=== PATIENT | female | born 1955 | race Caucasian/White ===

== ENCOUNTER 2016-10-08 12:42 | Emergency (ER) | payer OTHER ==
[2016-10-08 13:06] VITALS: BP 113/73
--- NOTE | 2016-10-08 13:32 | UC ---
Skin Complaint HPI - HPI Summary HPI Summary: Itching, burning skin on back of head, down both arms, on the back starting a few days ago. Fears it is shingles again. Skin very prickly and itchy all over. Many recent life stressors, including of MELVINA 3 months ago, moving in with her MIL, and being diagnosed with UC. Has started new medication for UC. Hx of anxiety and depression. Pt admits she has picked at her skin in the past during stressful times. - History of Current Complaint Chief Complaint: UCSkin Time Seen by Provider: 10/08/16 13:14 Stated Complaint: RASH Hx Obtained From: Patient ?: No Onset/Duration: Gradual Onset, Lasting Days Timing: Constant Onset Severity: Moderate Current Severity: Moderate Location: Diffuse Character: Pruritus Alleviating: Nothing Associated Signs & Symptoms: Positive: Rash - Allergy/Home Medications Allergies/Adverse Reactions: Allergies Allergy/AdvReac Type Severity Reaction Status Date / Time Penicillins Allergy Rash And Verified 09/13/16 11:59 Itching Review of Systems Constitutional: Negative Skin: Rash Eyes: Negative ENT: Negative Respiratory: Negative Cardiovascular: Negative Gastrointestinal: Negative Genitourinary: Negative Motor: Negative Neurovascular: Negative Musculoskeletal: Negative Neurological: Negative Psychological: Negative All Other Systems Reviewed And Are Negative: Yes PMH/Surg Hx/FS Hx/Imm Hx Endocrine History Of: Denies: Diabetes, Thyroid Disease Cardiovascular History Of: Denies: Cardiac Disorders, Hypertension, Pacemaker/ICD Respiratory History Of: Denies: COPD, Asthma GI/ History Of: Denies: Ulcer, Renal Disease Psychological History Of: Reports: Anxiety, Depression - Surgical History Surgical History: Yes Surgery Procedure, Year, and Place: Lt KNEE. Jun 2014 Herniated disc repair - Family History Known Family History: Positive: None - Social History Lives: With Family Alcohol Use: None Substance Use Type: None Smoking Status (MU): Former Smoker Have You Smoked in the Last Year: No When Did the Patient Quit Smoking/Using Tobacco: 2011 - Immunization History Most Recent Influenza Vaccination: Jun 2014 Most Recent Tetanus Shot: unk Physical Exam Triage Information Reviewed: Yes Appearance: Well-Appearing, No Pain Distress, Thin Vital Signs: Initial Vital Signs Temp 98.2 F 10/08/16 12:54 Pulse 88 10/08/16 12:54 Resp 16 10/08/16 12:54 BP 113/73 10/08/16 12:54 Pulse Ox 98 10/08/16 12:54 Vital Signs Reviewed: Yes Eye Exam: Normal Eyes: Positive: Conjunctiva Clear ENT Exam: Normal ENT: Positive: Normal ENT inspection, Hearing grossly normal, Pharynx normal, TMs normal Dental Exam: Normal Neck exam: Normal Neck: Positive: Supple, Nontender, No Lymphadenopathy Respiratory Exam: Normal Respiratory: Positive: Chest non-tender, Lungs clear, Normal breath sounds, No respiratory distress, No accessory muscle use Cardiovascular Exam: Normal Cardiovascular: Positive: RRR, No Murmur Musculoskeletal Exam: Normal Neurological Exam: Normal Psychological Exam: Normal Skin Exam: Other - open excoriations on back, R arm. R arm excoriation near elbow surrounded by bruising, no raised lesions, no rash noted. Multiple small round pale scars all over arms, face, and upper back. Course/Dx - Diagnoses Provider Diagnoses: anxiety. skin-picking. pruritis Discharge - Discharge Plan Condition: Stable Disposition: HOME Prescriptions: hydrOXYzine HCL TAB* [Atarax TAB*] 50 mg PO QID PRN #20 tab PRN Reason: Itching Patient Education Materials: Anxiety (ED), Itchy Skin (ED) Referrals: Michael Cook MD [Primary Care Provider] - Additional Instructions: The cetirizine (zyrtec) that you take at bedtime is in the same drug class as the prescription you have received today. It is safe to take the hydroxyzine during the say and the cetirizine at night, or you can stop the cetirizine altogether. If you need a nighttime dose, take only one or the other. Please discuss your recent stress with Dr. Cook, and try to allow your skin to heal. You may need to revisit your treatment of anxiety and depression.
== END 2016-10-08 13:33 | disposition home or self-care (01) ==
LOC: UCEAST 12:42
DX: F41.9 Anxiety disorder, unspecified (principal); F42.4 Excoriation (skin-picking) disorder; L29.9 Pruritus, unspecified; Z88.0 Allergy status to penicillin; Z87.891 Personal history of nicotine dependence
CPT/HCPCS: 99212; G0463

== ENCOUNTER 2017-05-20 18:25 | Emergency (ER) | payer OTHER ==
[2017-05-20 18:35] VITALS: BP 123/63
--- NOTE | 2017-05-20 19:00 | UC ---
Lower Extremity/Ankle HPI - HPI Summary HPI Summary: L ankle pain since tripping on the stairs 3 days ago. Ankle still painful and swelling. - History of Current Complaint Chief Complaint: UCLowerExtremity Stated Complaint: ANKLE AND FOOT INJURY Time Seen by Provider: 05/20/17 18:50 Hx Obtained From: Patient ?: No Onset/Duration: Sudden Onset, Lasting Days Severity Initially: Moderate Severity Currently: Mild Aggravating Factor(s): Standing, Ambulation Alleviating Factor(s): Rest Able to Bear Weight: Yes - Allergies/Home Medications Allergies/Adverse Reactions: Allergies Allergy/AdvReac Type Severity Reaction Status Date / Time Cetirizine Allergy Hives Verified 05/20/17 18:38 Penicillins Allergy Rash And Verified 09/13/16 11:59 Itching Home Medications: Home Medications Clonazepam [Klonopin] 1 mg PO 05/20/17 [History] PMH/Surg Hx/FS Hx/Imm Hx Previously Healthy: Yes - Surgical History Surgical History: Yes Surgery Procedure, Year, and Place: Lt KNEE. Jun 2014 Herniated disc repair - Family History Known Family History: Positive: None - Social History Alcohol Use: None Substance Use Type: None Smoking Status (MU): Former Smoker Have You Smoked in the Last Year: No When Did the Patient Quit Smoking/Using Tobacco: 2011 - Immunization History Most Recent Influenza Vaccination: Jun 2014 Most Recent Tetanus Shot: unk Review of Systems Constitutional: Negative Skin: Negative Eyes: Negative ENT: Negative Respiratory: Negative Cardiovascular: Negative Gastrointestinal: Negative Genitourinary: Negative Motor: Negative Neurovascular: Negative Musculoskeletal: Arthralgia - L ankle Neurological: Negative Psychological: Negative All Other Systems Reviewed And Are Negative: Yes Physical Exam Triage Information Reviewed: Yes Appearance: Well-Appearing, No Pain Distress, Well-Nourished Vital Signs: Initial Vital Signs Temp 98.1 F 05/20/17 18:31 Pulse 86 05/20/17 18:31 Resp 20 05/20/17 18:31 BP 123/63 05/20/17 18:31 Pulse Ox 100 05/20/17 18:31 Vital Signs Reviewed: Yes Eye Exam: Normal, Other - PERRL Eyes: Positive: Conjunctiva Clear ENT Exam: Normal ENT: Positive: Normal ENT inspection, Hearing grossly normal, Pharynx normal, TMs normal Dental Exam: Normal Neck exam: Normal Neck: Positive: Supple, Nontender, No Lymphadenopathy Respiratory Exam: Normal Respiratory: Positive: Chest non-tender, Lungs clear, Normal breath sounds, No respiratory distress, No accessory muscle use Cardiovascular Exam: Normal Cardiovascular: Positive: RRR, No Murmur Musculoskeletal Exam: Other - mild tenderness diffuse over L lateral ankle/ foot. No bony tenderness Musculoskeletal: Positive: Strength Intact, ROM Intact Neurological Exam: Normal Neurological: Positive: Alert Psychological Exam: Normal Skin Exam: Normal Lower Extremity Course/Dx - Differential Dx/Diagnosis Provider Diagnoses: L ankle sprain Discharge - Discharge Plan Condition: Stable Disposition: HOME Patient Education Materials: Ankle Sprain (ED) Referrals: Michael Cook MD [Primary Care Provider] - Additional Instructions: I expect your pain to gradually improve over 1-2 weeks. If you are not back to normal activities in that timeframe, please see your primary care provider for a recheck. Use ibuprofen, elevation, and immobilization for pain.
--- NOTE | 2017-05-20 19:11 | RAD ---
HISTORY: Left lower extremity injury, subacute trauma COMPARISONS: None VIEWS: 6, Frontal, lateral, and oblique views of the left ankle and of the left foot FINDINGS: BONE DENSITY: Normal. BONES: There is no displaced fracture. JOINTS: There is mild osteoarthritis of the first MTP joint ALIGNMENT: There is no dislocation. SOFT TISSUES: Unremarkable. OTHER FINDINGS: None. IMPRESSION: NO ACUTE OSSEOUS INJURY TO THE LEFT ANKLE OR TO THE LEFT FOOT. IF SYMPTOMS PERSIST, RECOMMEND REPEAT IMAGING.
== END 2017-05-20 19:30 | disposition home or self-care (01) ==
LOC: UCEAST 18:25
DX: S93.402A Sprain of unspecified ligament of left ankle, initial encounter (principal); W10.2XXA Fall (on)(from) incline, initial encounter; Y93.9 Activity, unspecified; Y92.9 Unspecified place or not applicable; Z88.1 Allergy status to other antibiotic agents; Z88.0 Allergy status to penicillin; Z87.891 Personal history of nicotine dependence
CPT/HCPCS: 99213; G0463

== ENCOUNTER 2017-06-23 15:32 | Emergency (ER) | payer OTHER ==
[2017-06-23 17:36] VITALS: BP 135/71
--- NOTE | 2017-06-23 17:54 | RAD ---
INDICATION: Left foot pain. Injury 1 month ago. COMPARISON: None TECHNIQUE: AP, lateral, and oblique views were obtained. FINDINGS: There are no acute bony findings. There is minor first MTP joint osteoarthritis with minor hallux valgus deformity. The joint spaces are maintained. The soft tissues are normal.. IMPRESSION: NO ACUTE BONY FINDINGS.
--- NOTE | 2017-06-23 17:55 | UC ---
Lower Extremity/Ankle HPI - HPI Summary HPI Summary: Patient presents to the with CC of right foot pain x 4 weeks without improvement. She was seen here 1 month ago and xrays were taken. Showed no acute findings. She was given an que wrap and a follow up to ortho but states she cannot go because she is too busy. She states she is not leaving without medication and a boot d/t the amount of pain. Her pain was originally located in the right ankle with the deltoid ligmanet involvement. After using the que wrap for a short amount of time, she currently is now using no support. She states the pain has moved to the anterior and posterior foot with worsening pain in the plantar surface. She notes previous injuries of the ankle and a bunion. Pain is 8/10, constant and aching. - History of Current Complaint Chief Complaint: UCLowerExtremity Stated Complaint: L SPRAINED ANKLE Time Seen by Provider: 06/23/17 17:05 Hx Obtained From: Patient ?: No Onset/Duration: Sudden Onset Severity Initially: Moderate Severity Currently: Moderate Pain Intensity: 8 Pain Scale Used: 0-10 Numeric Aggravating Factor(s): Standing, Ambulation Alleviating Factor(s): Rest Able to Bear Weight: No - Allergies/Home Medications Allergies/Adverse Reactions: Allergies Allergy/AdvReac Type Severity Reaction Status Date / Time Cetirizine Allergy Hives Verified 06/23/17 16:15 Penicillins Allergy Rash And Verified 06/23/17 16:15 Itching Home Medications: Home Medications Fexofenadine (NF) [Irina 180 (NF)] 1 tab PO DAILY 06/23/17 [History Confirmed 06/23/17] PMH/Surg Hx/FS Hx/Imm Hx Previously Healthy: Yes - Surgical History Surgical History: Yes Surgery Procedure, Year, and Place: Lt KNEE. Jun 2014 Herniated disc repair - Family History Known Family History: Positive: None - Social History Occupation: Unemployed Lives: With Family Alcohol Use: None Substance Use Type: None Smoking Status (MU): Former Smoker Have You Smoked in the Last Year: No When Did the Patient Quit Smoking/Using Tobacco: 2011 - Immunization History Most Recent Influenza Vaccination: Jun 2014 Most Recent Tetanus Shot: unk Review of Systems Constitutional: Negative ENT: Negative Respiratory: Negative Genitourinary: Negative Motor: Negative Neurovascular: Negative Musculoskeletal: Arthralgia Neurological: Negative Psychological: Negative Is Patient Immunocompromised?: No All Other Systems Reviewed And Are Negative: Yes Physical Exam Triage Information Reviewed: Yes Appearance: Well-Appearing, Well-Nourished Vital Signs: Initial Vital Signs Temp 98.5 F 06/23/17 16:11 Pulse 88 06/23/17 16:11 Resp 18 06/23/17 16:11 BP 113/72 06/23/17 16:11 Pulse Ox 100 06/23/17 16:11 Vital Signs Reviewed: Yes Eye Exam: Normal Eyes: Positive: Conjunctiva Clear Neck exam: Normal Neck: Positive: Supple, No Lymphadenopathy Cardiovascular Exam: Normal Cardiovascular: Positive: RRR Musculoskeletal: Positive: Strength Intact, ROM Intact - ROM in tact - but with pain Neurological Exam: Normal Neurological: Positive: Alert Psychological: Positive: Normal Response To Family Skin Exam: Normal Lower Extremity Course/Dx - Course Course Of Treatment: Patient evaluated for persistent foot pain. Seen here 4 weeks ago. No improvement of symptoms. Patient is requesting a boot and pain medication. She is given a cam boot and pain medications. Xray obtained and again negative. She is hesitant to follow up with ortho stating she did not like her previous experience but is willing to try again. She is given a referral to ortho. - Differential Dx/Diagnosis Differential Diagnosis/HQI/PQRI: Fracture (Closed), Fracture (Open), Sprain, Strain Provider Diagnoses: Foot Pain Discharge - Discharge Plan Condition: Stable Disposition: HOME Prescriptions: HYDROcodone/ACETAMIN 5-325 MG* [[place] 5-325 TAB*] 1 tab PO Q4H PRN #18 tab MDD 6 PRN Reason: Pain Patient Education Materials: Foot Sprain (ED) Forms: *Gen. Provider Communication Referrals: Michael Cook MD [Primary Care Provider] - Abhishek Mcintyre MD [Medical Doctor] - Additional Instructions: Follow up with ORTHO. Continue to wear the boot for your comfort Ibuprofen 600mg three times daily for INFLAMMATION - do this for at least the next 5 days If numbness, tingling, decreased sensation, increased pain, temperature changes or pallor noted in toes, come back to ER immediately. Protect the area. For your comfort level, do not bear weight, pull or push until you can injury is somewhat healed. This may involve the need for immobilization or crutches for a period of time. Rest the involved area, but not too long. You may need to be off your injury for some time to allow for healing, however excessive immobilization of joints can lead to stiffness and delay healing time. Early mobilization is encouraged if it is pain-free. Ice. Not directly on the skin. Cover with a towel. Apply ice no more than 30 minutes at a time Compression: You may use and keep an que wrap bandage over the injury to decrease swelling. Again, this should be limited and be taken off periodically to encourage early range of motion and mobilization. Elevate: Try to elevate the injured area above the heart whenever possible. Hydrocodone-acetaminophen only as needed for pain not well controlled with the ibuprofen.
== END 2017-06-23 18:10 | disposition home or self-care (01) ==
LOC: UCEAST 15:32
DX: M79.672 Pain in left foot (principal)
CPT/HCPCS: 99212; G0463

== ENCOUNTER 2017-08-14 14:32 | Emergency (ER) | payer OTHER ==
[2017-08-14] MEDS ORDERED: Albuterol/Ipratropium NEB.SOL* Albuterol 2.5 MG/Ipratropium 0.5 MG 3 ML INH ONE (16:04)
--- NOTE | 2017-08-14 16:08 | UC ---
Kavya Suarez Nilda, scribed for Ellie aCr MD on 08/14/17 at 1607 . Respiratory Complaint HPI - HPI Summary HPI Summary: This patient is a 62 year old F presenting [place] [facility] with a chief complaint of constant productive cough (yellow or white) for the past 3 weeks. Patient reports sinus congestion, fever (101 F, last week), dyspnea, chills, diaphoresis , and wheezing. Symptoms aggravated and alleviated by nothing. She has been treating herself with Mucinex with no resolution. Pt states she has had recent sick contacts and that she has had her flu shot this year. Pt states she is currently on medication for anxiety, allergies, and UC. She denies being on blood thinners. Patients medication reviewed this visit. - History of Current Complaint Chief Complaint: UCRespiratory Stated Complaint: COUGH, CONGUESTION Time Seen by Provider: 08/14/17 15:51 Hx Obtained From: Patient Hx Last Menstrual Period: post menopausal Onset/Duration: Sudden Onset, Lasting Weeks, Still Present Timing: Constant Severity Currently: Moderate Aggravating Factors: Nothing Alleviating Factors: Nothing Associated Signs And Symptoms: Positive: Dyspnea, Fever, Chills, Wheezing, Nasal Congestion Related History: Seasonal Allergies - Allergies/Home Medications Allergies/Adverse Reactions: Allergies Allergy/AdvReac Type Severity Reaction Status Date / Time Cetirizine Allergy Hives Verified 08/14/17 14:57 Codeine Allergy See Comment Verified 08/14/17 14:57 Penicillins Allergy Rash And Verified 08/14/17 14:57 Itching Home Medications: Home Medications Venlafaxine ER (NF) [Effexor ER (NF)] 300 mg PO DAILY 08/14/17 [History Confirmed 08/14/17] PMH/Surg Hx/FS Hx/Imm Hx Previously Healthy: Yes GI/ History: Other - UC Other GI/ History: UC Psychological History: Anxiety - Surgical History Surgical History: Yes Surgery Procedure, Year, and Place: Lt KNEE. Jun 2014 Herniated disc repair - Family History Known Family History: Negative: Cardiac Disease, Hypertension, Diabetes - Social History Occupation: Employed Full-time Lives: With Family Alcohol Use: None Substance Use Type: None Smoking Status (MU): Former Smoker Have You Smoked in the Last Year: No When Did the Patient Quit Smoking/Using Tobacco: 2011 - Immunization History Most Recent Influenza Vaccination: 2017 Most Recent Tetanus Shot: unk Review of Systems Constitutional: Fever, Chills, Other - diaphoresis Skin: Negative Eyes: Negative ENT: Sore Throat, Sinus Congestion Respiratory: Cough - productive, Other - dyspnea, wheezing All Other Systems Reviewed And Are Negative: Yes Physical Exam Triage Information Reviewed: Yes Appearance: Well-Appearing, No Pain Distress, Well-Nourished Vital Signs: Initial Vital Signs Temp 99.8 F 08/14/17 15:00 Pulse 85 08/14/17 15:00 Resp 18 08/14/17 15:00 BP 131/64 08/14/17 15:00 Pulse Ox 97 08/14/17 15:00 Vital Signs Reviewed: Yes Eye Exam: Normal Eyes: Positive: Conjunctiva Clear ENT: Positive: Hearing grossly normal, TM dull, Other - turbinates inflammed, boggy Dental Exam: Normal Respiratory Exam: Normal Respiratory: Positive: Chest non-tender, No respiratory distress, No accessory muscle use, Wheezing, Other: - coarse cough few scattered wheeze no retractions speaking full sentences Cardiovascular Exam: Normal Cardiovascular: Positive: RRR, No Murmur, Pulses Normal Abdominal Exam: Normal Abdomen Description: Positive: Nontender, No Organomegaly, Soft Bowel Sounds: Positive: Present Musculoskeletal Exam: Normal Musculoskeletal: Positive: Strength Intact Neurological Exam: Normal Neurological: Positive: Alert Psychological Exam: Normal Skin Exam: Normal Diagnostic Evaluation - Laboratory O2 Sat by Pulse Oximetry: 97 - Radiology Radiology Interpretation Completed By: Radiologist - CXR, per radiologist, reveals no active cardiopulmonary disease is noted. physician has reviewed this report and agrees. Re-Evaluation - Re-Evaluation First Eval Re-Evaluation Time: 16:37 Change: Improved Comment: Pt feels better. Reviewed imaging results with patient and plans to D/ C. Pt agreeable with this plan. Respiratory Course/Dx - Course Course Of Treatment: Pt with 3 weeks coarse cough, sputum, fevers,. Pt markedly improved following neb. Will give Rx. MDI. secretion precaution. Pt comfortable and in agreement with plan. Patients medication reviewed this visit. Pt is stable and will be D/C with a Dx of acute bronchitis with a prescription for albuterol, azithromycin, fluconazole, and spacer. Pt understands and is agreeable with this plan. - Differential Dx/Diagnosis Provider Diagnoses: bronchitis Discharge - Discharge Plan Condition: Stable Disposition: HOME Prescriptions: Albuterol HFA INHALER* [Ventolin HFA Inhaler*] 1 puff INH Q4H PRN #1 mdi PRN Reason: wheeze Azithromycin TAB* [Zithromax TAB (Z-CALLIE) 250 mg #6 tabs] 2 tab PO .TODAY, THEN 1 DAILY #1 callie Fluconazole [Diflucan 150 MG (NF)] 150 mg PO ONCE #1 tab Spacer/Aerosol-Holding Chamber [Aerochamber Mini Aerosol] 1 mis XX Q4HR PRN #1 mis PRN Reason: wheeze Patient Education Materials: Acute Bronchitis (ED) Referrals: Michael Cook MD [Primary Care Provider] - Additional Instructions: - Stay well hydrated. Drink plenty of non-alcoholic, non-caffinated beverages. - After you have been on antibiotics for 2 days - change your toothbrush and your pillowcase. These infections are spread by secretions - do NOT share eating or drinking utensils - clean items you share with other people such as cell phones, computer mouse, TV remote, computer tablets, etc - Use albuterol, 2 puffs, every 4 hours today and tomorrow. Then every 4 hours as needed - Alternate ibuprofen (Advil, Motrin) 600mg and Tylenol every 3 hours for pain or fever. Take with food. Do NOT take for more than 4-5 days. -- Call your doctor to schedule a follow-up appointment. Call your doctor or return with questions or concerns The documentation as recorded by the Kavya sanchez Nilda accurately reflects the service I personally performed and the decisions made by me, Ellie Car MD.
--- NOTE | 2017-08-14 16:27 | RAD ---
Indication: Cough. 2 views of the chest including dual energy PA views demonstrates no mediastinal shift. Heart is of normal size and configuration. Lung chacon are clear. IMPRESSION: No active cardiopulmonary disease is noted.
[2017-08-14 16:44] VITALS: BP 133/72
== END 2017-08-14 16:50 | disposition home or self-care (01) ==
LOC: UCEAST 14:32
DX: J40 Bronchitis, not specified as acute or chronic (principal); F41.9 Anxiety disorder, unspecified; Z88.5 Allergy status to narcotic agent; Z88.0 Allergy status to penicillin; Z88.8 Allergy status to other drugs, medicaments and biological substances; Z87.891 Personal history of nicotine dependence
CPT/HCPCS: 71020; 99212; A9270-GY; G0463

== ENCOUNTER 2017-11-17 16:21 | Emergency (ER) | payer OTHER ==
[2017-11-17 16:47] VITALS: BP 116/77
--- NOTE | 2017-11-17 17:10 | UC ---
Earnestine Suarez Emily, scribed for Johnny Galicia MD on 11/17/17 at 1659 . Dental HPI - HPI Summary HPI Summary: This patient is a 62 year old F presenting to urgent care with a chief complaint of R dental pain that began on 11/15/2017. The patient rates the pain 8 /10 in severity. Symptoms aggravated by nothing. Symptoms alleviated by nothing. Patient reports sinus pressure, rash on R side of face, and edema on R cheek. Pt was prescribed Clindamycin from dentist. - History of Current Complaint Chief Complaint: UCDentalProblem Stated Complaint: TEETH COMPLAINTS Time Seen by Provider: 11/17/17 16:48 Hx Obtained From: Patient Hx Last Menstrual Period: post menopausal Onset/Duration: Sudden Onset, Lasting Days, Still Present Severity: Severe Pain Intensity: 8 Pain Scale Used: 0-10 Numeric Aggravating Factor(s): Nothing Alleviating Factor(s): Nothing - Allergies/Home Medications Allergies/Adverse Reactions: Allergies Allergy/AdvReac Type Severity Reaction Status Date / Time cetirizine Allergy Hives Verified 11/17/17 16:35 codeine Allergy See Comment Verified 11/17/17 16:36 Penicillins Allergy Rash And Verified 11/17/17 16:35 Itching Home Medications: Home Medications Clindamycin HCl 150 mg PO QID 11/17/17 [History Confirmed 11/17/17] Omeprazole CAP* [Prilosec CAP* 20 MG] 20 mg PO DAILY 11/17/17 [History Confirmed 11/17/17] PMH/Surg Hx/FS Hx/Imm Hx Previously Healthy: No Endocrine History: Other Other Endocrine History: Negative Psychological History: Anxiety, Depression - Surgical History Surgical History: Yes Surgery Procedure, Year, and Place: Lt KNEE. Jun 2014 Herniated disc repair - Family History Known Family History: Positive: None Negative: Cardiac Disease, Hypertension, Diabetes - Social History Occupation: Unemployed Lives: With Family Alcohol Use: None Substance Use Type: None Smoking Status (MU): Former Smoker Have You Smoked in the Last Year: No When Did the Patient Quit Smoking/Using Tobacco: 2011 - Immunization History Most Recent Influenza Vaccination: 2017 Most Recent Tetanus Shot: unk Review of Systems Skin: Rash ENT: Dental Pain, Sinus Pain/Tenderness Musculoskeletal: Edema All Other Systems Reviewed And Are Negative: Yes Physical Exam - Summary Physical Exam Summary: General: well-appearing, no pain distress Skin: warm, color reflects adequate perfusion, dry, Swelling in R cheek. Skin breakdown on the R cheek, no drainage right now. Head: normal Eyes: EOMI, SANDRINE ENT: On the upper R molars, teeth are tender to palpation. Neck: supple, nontender Respiratory: CTA, breath sounds present Cardiovascular: RRR Abdomen: soft, nontender Bowel: present Musculoskeletal: normal, strength/ROM intact Neurological: normal, sensory/motor intact, A&O x3 Psychological: affect/mood appropriate Triage Information Reviewed: Yes Vital Signs: Initial Vital Signs Temp 98.7 F 11/17/17 16:39 Pulse 93 11/17/17 16:39 Resp 16 11/17/17 16:39 BP 116/77 11/17/17 16:39 Pulse Ox 100 11/17/17 16:39 Vital Signs Reviewed: Yes Dental Complaint Course/Dx - Course Course Of Treatment: Medications reviewed. Allergies reviewed. RIGHT CHEEK IS SWOLLEN. THERE IS SKIN BREAKDOWN OVER THE SWELLING. NO DRAINAGE AT THIS TIME. IT IS UNCLEAR IF THE SKIN BREAKDOWN IS FROM THE SWELLING OR FROM A REACTION TO CLEANING THE AREA. PATIENT HAS BEEN USING NEOMYCIN. CLINDAMYCIN IS DOSED AT 150MG PO QID. ALLERGIC TO PENICILLIN. WILL INCREASE THE DOSE OF CLINDA TO 300MG PO QID. USE MUPIROCIN TOPICALLY. STOP THE NEOMYCIN. F/U DENTIST. GO TO ED IF WORSE. - Differential Dx/Diagnosis Provider Diagnoses: DENTAL ABSCESS Discharge - Discharge Plan Condition: Stable Disposition: HOME Prescriptions: Clindamycin Cap(NF) [Clindamycin Cap 300 mg Cap(NF)] 300 mg PO Q6H #40 cap Mupirocin 2% OINT* [Bactroban 2 % Oint*] 1 applic TOPICAL BID #1 tube Patient Education Materials: Dental Abscess (ED) Referrals: Michael Cook MD [Primary Care Provider] - Additional Instructions: FOLLOW UP WITH YOUR DENTIST. GO TO THE EMERGENCY DEPARTMENT FOR ANY WORSENING OF YOUR CONDITION OR QUESTIONS OR CONCERNS. The documentation as recorded by the Earnestine sanchez Emily accurately reflects the service I personally performed and the decisions made by me, Johnny Galicia MD.
== END 2017-11-17 17:10 | disposition home or self-care (01) ==
LOC: UCEAST 16:21
DX: K04.7 Periapical abscess without sinus (principal); R21 Rash and other nonspecific skin eruption; R60.9 Edema, unspecified; F41.9 Anxiety disorder, unspecified; F32.9 Major depressive disorder, single episode, unspecified; Z88.5 Allergy status to narcotic agent; Z88.0 Allergy status to penicillin; Z88.8 Allergy status to other drugs, medicaments and biological substances; Z87.891 Personal history of nicotine dependence
CPT/HCPCS: 99212; G0463